=== PATIENT | male | born 1970 | race Caucasian/White ===

== ENCOUNTER → 2024-01-30 | Outpatient (CLI) | payer MEDICAID, SELFPAY ==
--- NOTE | 2024-01-30 16:00 | XR_ITS ---
Examination: CT chest, without intravenous contrast. Sagittal and coronal 2-D reconstructions. Exam date and time: January 30, 2024 1550 hours INDICATIONS: Smoking history 41 years CTDI:vol (mGy) 14.6 DLP: (mGycm) 554 Technique: Multiple 3.0 mm axial sections of the chest to been obtained. Bone and lung density settings are obtained. Sagittal and coronal 2-D reconstructions have been obtained. Low dose protocols were performed. One or more of the following dose reduction techniques were used; automated exposure control, adjustment of the mA and/or KV according to patient size, use of iterative reconstruction technique. Findings: AP dimension ascending thoracic aorta 4.1 cm Mean pulmonary artery segment 30 mm No paratracheal tracheobronchial or bronchopulmonary adenopathy Tiny calcified granulomas in both lower lung zones No noncalcified pulmonary nodules No pneumonia or pulmonary edema or pleural disease No visualized liver or splenic lesion No gallstones noted Kidneys partially visualized no hydronephrosis Moderate thoracic spondylosis IMPRESSION: Mild aneurysmal dilatation ascending thoracic aorta No mediastinal lymphadenopathy No pneumonia, pulmonary edema or noncalcified pulmonary nodules
== END | disposition home or self-care (01) ==
LOC: CCTX 15:28
PROVIDERS: PCP Nurse Practitioner Family; Referring Provider Nurse Practitioner Family; Visit Provider Nurse Practitioner Family
DX: Z12.2 Encounter for screening for malignant neoplasm of respiratory organs (principal); I71.21 Aneurysm of the ascending aorta, without rupture; F17.210 Nicotine dependence, cigarettes, uncomplicated; Z72.0 Tobacco use
CPT/HCPCS: 71271